=== PATIENT | male | born 1950 | race Two or more races ===

== ENCOUNTER 2024-09-30 12:00 | Inpatient (IN) | payer MEDICARE, MEDICAID, SELFPAY ==
[2024-09-30] VITALS (10 sets, daily range): BP systolic 97–140; BP diastolic 60–82; PULSE 96–114; RESP 17–25; TEMP 36.2–39.9; O2SAT 95–100; BMI 24.6; BMI 25.2
--- NOTE | 2024-09-30 12:59 | EKG_ITS ---
[facility] Test Date: 2024-09-30 Pat Name: JENELLE DUEÑAS Department: Room: - Gender: Male [employer] Operator: : 1950 Requested By: Nubia Sandy Order Number: [id number] Reading MD: Nubia Sadny Measurements Intervals [place] Rate: 105 P: 49 CO: 144 QRS: 24 QRSD: 114 T: 63 QT: 366 QTc: 485 Interpretive Statements SINUS TACHYCARDIA MODERATE INTRAVENTRICULAR CONDUCTION DELAY [110+ ms QRS DURATION] NONSPECIFIC T-WAVE ABNORMALITY ABNORMAL RHYTHM ECG Compared to ECG 03/29/2024 13:16:41 T-wave abnormality now present /store/S0/[id number]/ecg/[id number].pdf
--- NOTE | 2024-09-30 13:00 | XR_ITS ---
Examination: AP chest single view Technique one AP portable upright chest single view Exam date and time: September 30, 2024 1418 hours INDICATIONS: Weakness fever today. Final Subtle interstitial opacity in the lung zones Scarring in the right midlung Normal heart size Moderate osteopenia IMPRESSION: Suspicious for early diffuse bilateral pneumonia
--- NOTE | 2024-09-30 13:01 | EDNOTE_ITS ---
ED General RME/HPI General Chief complaint: Weakness Stated complaint: GENERAL WEAKNESS Time Seen by Provider: 09/30/24 12:53 Arrival date/time: 09/30/24 12:00 RME / HPI RME / HPI narrative: 73-year-old male patient with significant history of hypertension diabetes mellitus, CVA, with right-sided weakness, came in for evaluation regarding worsening generalized body weakness and not feeling well.. According to him for the last 1 week he has been having difficulty ambulating getting worse every day associated with not feeling well. Also complained of mild cough. Patient denies any abdominal pain. Denies any fever. Denies any other complaints. According to EMS patient is able to amb[place] Patient denies any fall recently. Related Data Previous Rx's ?Medication ?Instructions ?Recorded atorvastatin 80 mg tablet 80 mg PO HS 2 months #60 tabs 03/31/24 flash glucose scanning reader #1 ea 03/31/24 (FreeStyle Shelley 14 Day [place]rell) flash glucose sensor (FreeStyle #1 ea 03/31/24 Shelley 14 Day Sensor kit) insulin degludec 100 unit/mL (3 45 unit (0.45 mL) subcut QDAY #15 03/31/24 mL) subcutaneous pen mL Allergies Allergy/AdvReac Type Severity Reaction Status Date / Time No Known Allergies Allergy Verified 11/14/18 11:34 Review of Systems Review of Systems Narrative Review of Systems: Review of system reviewed and within normal limits except mentioned in HPI ED Exam Narrative Physical exam: VITAL SIGNS: Reviewed. GENERAL APPEARANCE: Alert and interactive, follows commands, no acute distress, HEAD AND FACE: Non-traumatic. ENT: PERRL, pink conjunctivitis, eyelid no trauma, Mucous membrane moist. NECK: Supple, nontender, no nuchal rigidity. CHEST: No tenderness, no crepitus, no paradoxical movement, no retractions. LUNGS: Clear, well ventilated, symmetric, no rales, no wheezing, no ronchi, no stridor, good breath sounds bilaterally. HEART: Regular rate, regular rhythm, no murmur, no gallops. ABDOMEN: Soft, positive bowel sounds, nondistended, no guarding, nontender, no rebound, no masses, left colostomy intact, with good amount of fecal material, suprapubic catheter intact draining cloudy urine RECTAL: Deferred. GENITAL: Deferred. NEUROLOGICAL: Gross motor function intact sensory function intact, Appropriate for age. MUSCULOSKELETAL: low back nontender, full range of motion. EXTREMITIES: Nontender, full range of motion. SKIN: Color pink, dry, no rash, no lacerations, no abrasions, no contusions. LYMPHATICS: Deferred. Course Quality Measures none Orders Category Date Time Status Admit to Inpatient Status Routine Admission 09/30/24 17:49 Active Patient Condition Routine Admission 09/30/24 17:48 Ordered COVID-19 Screening Questionnaire NOW Care 09/30/24 17:22 Active Decision to Admit X1 Care 09/30/24 17:22 Active EKG (ED ONLY) *Do not use* NOW Care 09/30/24 12:59 Completed Ordaz [Urinary Catheter] QS Care 09/30/24 13:00 Active Notify provider NEEDED Care 09/30/24 17:48 Active EKG (ED Only) Stat Exams 09/30/24 12:59 Draft XR chest 1V Stat Exams 09/30/24 13:00 Completed Blood Culture (Lab) Stat Lab 09/30/24 16:25 Received CBC AM DRAW Lab 10/01/24 05:00 Ordered CBC AM DRAW Lab 10/02/24 05:00 Ordered CBC AM DRAW Lab 10/03/24 05:00 Ordered CBC Stat Lab 09/30/24 13:05 Completed Comprehensive Metabolic Panel AM DRAW Lab 10/01/24 05:00 Ordered Comprehensive Metabolic Panel AM DRAW Lab 10/02/24 05:00 Ordered Comprehensive Metabolic Panel AM DRAW Lab 10/03/24 05:00 Ordered Comprehensive Metabolic Panel Stat Lab 09/30/24 13:05 Completed Lactate (Lactic Acid) Stat Lab 09/30/24 16:20 Completed Lipase Stat Lab 09/30/24 13:05 Completed Lipid Panel AM DRAW Lab 10/01/24 05:00 Ordered Magnesium AM DRAW Lab 10/01/24 05:00 Ordered Magnesium AM DRAW Lab 10/02/24 05:00 Ordered Magnesium AM DRAW Lab 10/03/24 05:00 Ordered Partial Thromboplastin Time Stat Lab 09/30/24 13:05 Completed Phosphorous AM DRAW Lab 10/01/24 05:00 Ordered Phosphorous AM DRAW Lab 10/02/24 05:00 Ordered Phosphorous AM DRAW Lab 10/03/24 05:00 Ordered Procalcitonin Stat Lab 09/30/24 13:05 Completed Prothrombin Time with INR Stat Lab 09/30/24 13:05 Completed Thyroid Stimulating Hormone AM DRAW Lab 10/01/24 05:00 Ordered UA, C/S IF [Urinalysis, C/S if Indicated] Stat Lab 09/30/24 15:17 Completed Urine Culture Stat Lab 09/30/24 15:17 Received Acetaminophen Tab [Tylenol ES Tab] Med 09/30/24 15:35 Discontinued 1,000 mg PO X1 ONE Acetaminophen Tab [Tylenol Tab] Med 09/30/24 17:48 Active 650 mg PO Q6H PRN Azithromycin Inj [Zithromax Inj] 500 mg Med 09/30/24 15:30 Discontinued Sodium Chloride 0.9% 250 ml [Ns] 250 ml IV X1 Cefepime Inj [Maxipime Inj] 2 gm Med 09/30/24 17:53 Discontinued Sodium Chloride 0.9% (P) [Ns 0.9% (P)] 50 ml IV Q12HR Enoxaparin [Lovenox] Med 10/01/24 09:00 Active 40 mg SC QDAY Ibuprofen Tab [Motrin Tab] Med 09/30/24 16:15 Discontinued 800 mg PO X1 ONE Ondansetron Inj [Zofran Inj] Med 09/30/24 17:48 Active 4 mg IV Q6H PRN Sodium Chloride 0.9% 1000 ml [Ns] 1,000 ml Med 09/30/24 17:52 Active IV 75 mls/hr Sodium Chloride 0.9% 1000 ml [Ns] 1,000 ml Med 09/30/24 15:29 Discontinued IV 999 mls/hr cefTRIAXone/D5w 1gm IV premix [Rocephin/D5w 1gm IV Med 09/30/24 15:30 Discontinued premix] 50 ml IV X1 Code Status Routine Oth 09/30/24 17:48 Ordered Vital Signs Vital signs: Vital Signs Temperature 98.0 F 09/30/24 12:01 Pulse Rate 96 09/30/24 12:01 Respiratory Rate 17 09/30/24 12:01 Blood Pressure 97/60 09/30/24 12:01 Pulse Oximetry (%) 100 09/30/24 12:01 Oxygen Delivery Method Room Air 09/30/24 12:01 [facility] Patient data External records reviewed:: None Clinical information provided by:: none Social determinants that could affect healthcare access:: none Patient has the following chronic illnesses:: Note it is felt this hypertension history of rectal cancer How is presenting disease/condition affected by chronic disease/condition?: e xacerbated by Evaluation data The following diagnostics were reviewed and interpreted by me:: lab results, radiology exam(s) and EKG tracing(s) Lab and/or radiology exams considered but not ordered:: None Interpretation Summary: Laboratory workup is significant for slight elevation of Pro-Cesar, urinalysis significant for UTI, creatinine 1.8 BUN of 54. Chest x-ray showed diffuse bibasal pneumonia. EKG as interpreted by me showed EKG showed as interpreted by me as normal sinus rhythm, ventricular rate 105 bpm, no ST segment elevation depression noted. None Medications Medications considered but not ordered:: None Medication administrations:: Medication Administration History Acetaminophen (Acetaminophen 325 Mg Tablet) 650 mg PO Q6H PRN PRN Reason: Pain and Fever >101.5 Stop: 10/30/24 17:47 Dextrose (Dextrose 50%-Water Inj 50 Ml Syringe) 25 ml IV Q15MIN PRN PRN Reason: BG 50-70 responsive npo pt Stop: 10/30/24 17:57 Dextrose (Dextrose 50%-Water Inj 50 Ml Syringe) 50 ml IV Q15MIN PRN PRN Reason: BG <50 OR BG <70 & pt unresponsive Stop: 10/30/24 17:57 Enoxaparin Sodium (Enoxaparin Sod Inj 40 Mg/0.4 Ml Syringe) 40 mg SC QDAY ESTER Stop: 10/15/24 08:59 Glucagon (Glucagon Inj 1 Mg Vial) 1 mg IM Q15MIN PRN PRN Reason: BG <70, and no IV access Sodium Chloride (Ns) 1,000 mls @ 75 mls/hr IV .[id number] ONE Stop: 10/01/24 07:11 Cefepime HCl 2 gm/ Sodium (Chloride) 50 mls @ 100 mls/hr IV Q12HR ESTER Stop: 10/08/24 08:59 Insulin Glargine (Insulin Glargine (Lantus) 5 Unit/0.05 Ml (Per 5 Units)) 30 unit SC QDAY ESTER Stop: 10/30/24 17:59 Insulin Human Lispro (Insulin Lispro (Admelog) 1 Unit/0.01 Ml Unit) 0 unit SC AC ESTER; Protocol Stop: 10/31/24 07:29 Insulin Human Lispro (Insulin Lispro (Admelog) 1 Unit/0.01 Ml Unit) 6 unit SC TIDWM ESTER Stop: 10/31/24 07:59 Ondansetron HCl (Ondansetron Inj 2 Mg/Ml Inj 2 Ml) 4 mg IV Q6H PRN; Protocol PRN Reason: NAUSEA OR VOMITING Stop: 10/30/24 17:47 Discontinued Medications Acetaminophen (Acetaminophen 500 Mg Tablet) 1,000 mg PO X1 ONE Stop: 09/30/24 15:36 Last Admin: 09/30/24 15:05 Dose: 1,000 mg Documented By: MICHAEL Sodium Chloride (Ns) 1,000 mls @ 999 mls/hr IV .Q1H1M ONE Stop: 09/30/24 16:29 Last Admin: 09/30/24 15:48 Dose: 999 mls/hr Documented By: MICHAEL Ceftriaxone Sodium/Dextrose (Rocephin/D5w 1gm Iv Premix) 50 mls @ 100 mls/hr IV X1 ONE Stop: 09/30/24 15:59 Last Admin: 09/30/24 16:15 Dose: 100 mls/hr Documented By: MICHAEL Azithromycin 500 mg/ Sodium (Chloride) 250 mls @ 250 mls/hr IV X1 ONE Stop: 09/30/24 16:29 Last Admin: 09/30/24 16:15 Dose: 250 mls/hr Documented By: MICHAEL Cefepime HCl 2 gm/ Sodium (Chloride) 50 mls @ 100 mls/hr IV Q12HR COUNTS INCLUDE 234 BEDS AT THE [facility] Stop: 10/07/24 17:52 Ibuprofen (Ibuprofen Tab 400 Mg Tablet) 800 mg PO X1 ONE Stop: 09/30/24 16:16 Ceftriaxone and Zithromax IV. Patient was given Motrin and Tylenol. Consultations Consultation(s) initiated? (list below): No Diagnosis Differential Diagnosis ED Complaint MDM: Sepsis, pneumonia, UTI Most likely diagnosis given after review of the tests above:: Sepsis secondary to UTI, and pneumonia Admission Indicated Admission indicated?: indicated Explain why admission is indicated or not indicated:: Stable Admission Request Was there a request for admission?: Yes Admission Attestation Admission request attestation: Discussed case with [Dr. Locke] from Hospitalist service regarding admission. Discussed patients ED course, exam findings, labs, and radiology results. The Hospitalist [agrees] to accept the patient for admission. Disposition Plan Disposition Plan: Admit Medical Decision Making MDM Narrative MDM Narrative: 73-year-old male patient with significant history of hypertension diabetes mellitus, CVA, with right-sided weakness, came in for evaluation regarding worsening generalized body weakness and not feeling well.. According to him for the last 1 week he has been having difficulty ambulating getting worse every day associated with not feeling well. Also complained of mild cough. Patient denies any abdominal pain. Denies any fever. Denies any other complaints. According to EMS patient is able to ambulate with assistance going to the [place]. Patient denies any fall recently. While in the emergency room patient was noted to have a fever 103.8, tachycardic, sepsis alert was initiated. Laboratory workup significant for slightly elevated creatinine 1.8, BUN of 24, and significant urinary tract infection. Chest x-ray showed diffuse bilateral pneumonia. Patient was given IV fluids for hydration, Tylenol, IV ceftriaxone and Zithromax IV. Differential Diagnosis Differential Diagnosis: Sepsis, pneumonia, UTI Lab Data 09/30/24 13:05 09/30/24 13:05 Labs: Lab Results 09/30/24 09/30/24 09/30/24 Range/Units 13:05 15:17 16:20 WBC 9.1 (3.8-10.6) Thou/mm3 RBC 3.51 L (4.50-5.90) Miln/mm3 Hgb 10.0 L (13.5-16.0) g/dL Hct 28.6 L (41.0-53.0) % MCV 82 (80-100) fL MCH 28.5 (25.0-35.0) pg MCHC 35.0 (31.0-37.0) g/dl RDW Std Deviation 41.1 (35.1-43.9) fL Plt Count 190 (140-440) Thou/mm3 Neut % (Auto) 81 H (37-80) % Lymph % (Auto) 12 (10-50) % [place] % (Auto) 6 (0-12) % Eos % (Auto) 1 (0-10) % Baso % (Auto) 0 (0-2.5) % Neut # (Auto) 7.4 (1.8-7.7) Thou/mm3 Lymph # (Auto) 1.1 (1.0-4.8) Thou/mm3 [place] # (Auto) 0.6 (0.0-0.8) Thou/mm3 Eos # (Auto) 0.1 (0.0-0.5) Thou/mm3 Baso # (Auto) 0.0 (0.0-0.2) Thou/mm3 Immature Gran # (Auto) 0.03 H (0.00-0.00) Thou/mm3 Absolute Nucleated RBC 0.00 (0.00-0.00) Thou/mm3 Immature Gran % 0 (0-0) % Nucleated RBC % 0 (0) /100 WBC PT 11.1 (9.0-12.2) Seconds INR 1.0 (0.9-1.3) APTT 30.5 (22.0-36.0) Seconds Sodium 132 L (136-145) mMol/L Potassium 4.3 (3.4-5.1) mMol/L Chloride 100 (98-107) mMol/L Carbon Dioxide 26.7 (20.0-31.0) mMol/L Anion Gap 5 L (7-16) BUN 24 H (9-23) mg/dL Creatinine 1.8 H (0.6-1.3) mg/dL Estim Creat Clear Calc 35.4 L (>60) mL/min eGFR 39 L (60 - ) See Note BUN/Creatinine Ratio 13 (12-20) Ratio Glucose 338 H (74-106) mg/dL Calculated Osmolality 281 (275-295) Lactic Acid 1.9 (0.4-2.0) mMol/L Calcium 8.6 (8.3-10.6) mg/dL Corrected Calcium 8.8 (8.5-10.1) mg/dL Total Bilirubin 0.5 (0.3-1.2) mg/dL AST 13 (0-34) U/L ALT 12 (10-49) U/L Alkaline Phosphatase 96 (46-116) U/L Total Protein 6.7 (5.7-8.2) gm/dL Albumin 3.8 (3.4-4.8) gm/dL Globulin 2.9 (2.3-3.5) gm/dL Albumin/Globulin Ratio 1.3 (1.2-2.2) Lipase 22 (12-53) U/L Procalcitonin 0.60 H (0.0-0.49) ng/ml Ur Collection Type Clean Catch Urine Color Yellow (Lt Yel-Yel) Urine Clarity Cloudy A (Clear/Hazy) Urine pH 5.5 (5.0-7.0) Ur Specific [place] 1.014 (1.001-1.035) Urine Protein 2+ A (Neg - Trace) Urine Glucose (UA) 4+ A (Negative) Urine Ketones Negative (Negative) Urine Blood 2+ A (Negative) Urine Nitrite Positive (Negative) Urine Bilirubin Negative (Negative) Urine Urobilinogen (Auto) Negative (0.0-1.0) mg/dL Ur Leukocyte Esterase Positive (Negative) Urine RBC 23 H (0-3) /hpf Urine WBC 998 H (0-5) /hpf Ur Squamous Epith Cells 1 (0-5) /hpf Urine Bacteria 1+ A (None) Ur Culture Indicated? Yes Discharge Plan Plan Patient Disposition: Admit Acute Care w/in Hospital Disposition Comment: stable Problem List Clinical Impression: Sepsis, UTI (urinary tract infection), PNA (pneumonia) Patient/Caregiver Discharge Instructions Discharge Activity: activity as tolerated
[2024-09-30 13:40] LABS: Basophils % (Auto) 0 % (0-2.5); Eosinophils # (Auto) 0.1 Thou/mm3 (0.0-0.5); Eosinophils % (Auto) 1 % (0-10); Hematocrit 28.6 % (41.0-53.0); Immature Granulocytes % (Auto) 0 % (0-0); Immature Granulocytes Auto 0.03 Thou/mm3 (0.00-0.00); Lymphocytes # (Auto) 1.1 Thou/mm3 (1.0-4.8); Lymphocytes % (Auto) 12 % (10-50); Mean Corpuscular Hemoglobin 28.5 pg (25.0-35.0); Mean Corpuscular Volume 82 fL (80-100); Monocytes # (Auto) 0.6 Thou/mm3 (0.0-0.8); Monocytes % (Auto) 6 % (0-12); Neutrophils # (Auto) 7.4 Thou/mm3 (1.8-7.7); Neutrophils % (Auto) 81 % (37-80); Nucleated Red Blood Cell % 0 /100 WBC (0); Platelet Count 190 Thou/mm3 (140-440); RDW Standard Deviation 41.1 fL (35.1-43.9); Red Blood Count 3.51 Miln/mm3 (4.50-5.90); White Blood Count 9.1 Thou/mm3 (3.8-10.6)
[2024-09-30 13:54] LABS: Partial Thromboplastin Time 30.5 Seconds (22.0-36.0); Prothrombin Time 11.1 Seconds (9.0-12.2)
[2024-09-30 13:59] LABS: Alanine Aminotransferase 12 U/L (10-49); Albumin, Serum 3.8 gm/dL (3.4-4.8); Albumin/Globulin Ratio 1.3 (1.2-2.2); Alkaline Phosphatase 96 U/L (46-116); Anion Gap 5 (7-16); Aspartate Amino Transferase 13 U/L (0-34); BUN/Creatinine Ratio 13 Ratio (12-20); Bilirubin,Total 0.5 mg/dL (0.3-1.2); Blood Urea Nitrogen 24 mg/dL (9-23); Calcium 8.6 mg/dL (8.3-10.6); Calcium (Corrected) 8.8 mg/dL (8.5-10.1); Carbon Dioxide 26.7 mMol/L (20.0-31.0); Chloride 100 mMol/L (98-107); Creatinine (Component) 1.8 mg/dL (0.6-1.3); Estimated Creatinine Clearance 35.4 mL/min (>60); Globulin 2.9 gm/dL (2.3-3.5); Glucose 338 mg/dL (74-106); Lipase 22 U/L (12-53); Osmolality,Calculated 281 (275-295); Potassium 4.3 mMol/L (3.4-5.1); Sodium 132 mMol/L (136-145); Total Protein 6.7 gm/dL (5.7-8.2); eGFR 39 See Note
[2024-09-30] MEDS: ACETAMINOPHEN 500 MG TABLET 1000 MG PO (15:05)
[2024-09-30 15:22] LABS: Collection Type, Urine Clean Catch
[2024-09-30 15:45] LABS: Bacteria,Urine 1+; Bilirubin,Urine Negative (Negative); Blood,Urine 2+ (Negative); Color,Urine Yellow (Lt Yel-Yel); Glucose, Urine 4+ (Negative); Ketones,Urine Negative (Negative); Leukocyte Esterase,Urine Positive (Negative); Nitrite,Urine Positive (Negative); PH,Urine 5.5 (5.0-7.0); Protein,Urine 2+ (Neg - Trace); RBC,Urine 23 /hpf (0-3); Specific Gravity,Urine 1.014 (1.001-1.035); Squamous Epithelial Cell,Urine 1 /hpf (0-5); Urobilinogen,Urine Negative mg/dL (0.0-1.0); WBC,Urine 998 /hpf (0-5)
[2024-09-30] MEDS: SODIUM CHLORIDE 0.9% 1000 ML 1,000 ML 999 ML IV (15:48)
[2024-09-30 15:53] LABS: Clarity,Urine Cloudy (Clear/Hazy); Culture Indicated,Urine Yes
[2024-09-30] MEDS: cefTRIAXone/D5w 1gm IV premix 50 ML IV (16:15)
[2024-09-30] MEDS: AZITHROMYCIN INJ 500 MG in SODIUM CHLORIDE 0.9% 250 ML 250 ML 250 MG IV (16:15)
[2024-09-30 16:46] LABS: Lactate (Lactic Acid) 1.9 mMol/L (0.4-2.0)
--- NOTE | 2024-09-30 18:15 | ESHP_ITS ---
Documentation for date of: 09/30/24 [facility] History of Present Illness History of present illness: The patient is a 73-year-old male with a past medical history of hypertension, diabetes, CVA, colon and prostate cancer status post colostomy and radiation with suprapubic catheter who presented to the ED on 09/30/2024 with generalized weakness, mild confusion and fever that started about 24 hours prior to presentation. Per daughter and at bedside, patient got up to walk with his walker yesterday but was noted to be shaky and unsteady and reported more weakness than his usual for him. He was also noted the patient was running hot, with subjective fevers however they never actually checked his temperature at home, he reported chills as well. Patient cannot report dysuria due to catheter, but denies abdominal pain, nausea, vomiting, diarrhea, chest pain, cough. Patient does have a chronic suprapubic catheter after radiation for prostate cancer about 6 years ago, the catheter is changed periodically and was recently changed 4 days ago. He also has a colostomy bag, with good output. ED course: On presentation to the ED, the patient was noted to be afebrile, tachycardic and tachypneic but normotensive. Labs showed WBC 9.1 Hgb 10 PLT 190 NA 130 2K4.3 CL 100 bicarb 26.7 BUN 24 CR 1.8 EGFR 39 glucose 338. UA showed cloudy urine with 2+ protein and 4+ glucose, 23 RBCs and 998 WBC, 1+ bacteria. Chest x-ray was done which is suspicious for early diffuse bilateral pneumonia. EKG showed sinus tachycardia but no T wave or ST abnormalities, no arrhythmias. The patient was given 1 dose of IV ceftriaxone and azithromycin in the ED and 1 L of NS per sepsis protocol. He is being admitted for management of acute encephalopathy, sepsis secondary to urinary tract infection and pneumonia PMHx-hypertension, diabetes, colon and prostate cancer, CVA PSHx-colectomy Home meds-insulin, atorvastatin, lisinopril Review of Systems Review of Systems Narrative Review of Systems: GENERAL: Admits fevers and chills HEENT: Denies headache or visual/hearing changes. Denies nasal discharge. NEURO: Admits unusual weakness CARDIO: Denies chest pain or palpitations. PULM: Denies SOB, coughing, or wheezing. GI: Denies abdominal pain, N/V/C/D/reflux/gas, bright red blood per rectum or melena. Reports having BMs. URO: Denies burning/itching/pain/urinary changes. MSK/EXT/SKIN: Denies joint/skeletal/muscle pain, issues/changes in upper or lower extremities, itchiness, or superficial pain. Past Medical History Past Medical History CARDIAC: Positive Hypercholesterolemia and Hypertension GASTROINTESTINAL: Positive Colorectal Cancer GENITOURINARY: Positive Benign Prostatic Hyperplasia MUSCULOSKELETAL: Positive Arthritis OTHER HISTORY: Positive Cancer (colon) and Colorectal Cancer Family History FAMILY HISTORY: Positive Family Cancer ([place]) Surgical History SURGICAL: Positive Bowel Surgery Exam Vital Signs Temp Pulse Resp BP Pulse Ox O2 Del Method 103.8 F H 108 H 24 H 140/82 H 97 Room Air 09/30/24 16:14 09/30/24 14:02 09/30/24 14:02 09/30/24 14:02 09/30/24 14:02 09/30/24 14:02 Narrative Exam GENERAL: AAOX3, mildly confused NEURO: CRANE HELPER grossly intact, residual dysarthria from CVA, right-sided weakness HEENT: Dry mucosa. Eyes open, symmetrical, & clear CARDIO: No chest pain on palpation. Heart RRR, no obvious murmurs PULM: No noted coughing/dyspnea. Lungs CTA B/L GI: Abdomen soft, nondistended, colostomy bag seen with good output. URO/ACTIVITIES COUNSELOR:: Suprapubic catheter seen, no signs of infection SKIN/MSK/EXT: No wounds/rashes/edema/amputations, no pain on palpation. Pedal pulses present B/L Results: Labs 10/03/24 04:22 10/03/24 04:22 Labs: Short CBC 09/30/24 Range/Units 13:05 WBC 9.1 (3.8-10.6) Thou/mm3 Hgb 10.0 L (13.5-16.0) g/dL Hct 28.6 L (41.0-53.0) % Plt Count 190 (140-440) Thou/mm3 BMP 09/30/24 13:05 Sodium 132 L Potassium 4.3 Chloride 100 Carbon Dioxide 26.7 BUN 24 H Creatinine 1.8 H Glucose 338 H Calcium 8.6 Liver Function 09/30/24 Range/Units 13:05 Total Bilirubin 0.5 (0.3-1.2) mg/dL AST 13 (0-34) U/L ALT 12 (10-49) U/L Alkaline Phosphatase 96 (46-116) U/L Albumin 3.8 (3.4-4.8) gm/dL Urine 09/30/24 Range/Units 15:17 Urine Color Yellow (Lt Yel-Yel) Urine Clarity Cloudy A (Clear/Hazy) Urine pH 5.5 (5.0-7.0) Ur Specific [place] 1.014 (1.001-1.035) Urine Protein 2+ A (Neg - Trace) Urine Glucose (UA) 4+ A (Negative) Quality Measures Quality Measures VTE prophylaxis Advance care planning discussed with:: patient, spouse and child Medications Home Medications and Allergies Home Medications ?Medication ?Instructions ?Recorded ?Confirmed ?Type aspirin 81 mg chewable tablet 81 mg PO QDAY 10/01/24 10/01/24 History atorvastatin 80 mg tablet 80 mg PO ONCE PM 10/01/24 10/01/24 History ferrous sulfate 325 mg (65 mg 325 mg PO DAILY 10/01/24 10/01/24 History iron) tablet (FeroSul) insulin aspart U-100 100 unit/mL 10 unit subcut TIDWMEAL 10/01/24 10/01/24 History (3 mL) subcutaneous pen (Novolog FlexPen U-100 Insulin aspart) insulin glargine 100 unit/mL (3 50 unit subcut HS 10/01/24 10/01/24 History mL) subcutaneous pen (Lantus Solostar U-100 Insulin) lisinopril 10 mg tablet 10 mg PO QDAY 10/01/24 10/01/24 History Allergies Allergy/AdvReac Type Severity Reaction Status Date / Time No Known Allergies Allergy Verified 10/01/24 00:17 Visit Medications Acetaminophen (Acetaminophen 325 Mg Tablet) 650 mg PO Q6H PRN PRN Reason: Pain and Fever >101.5 Stop: 10/30/24 17:47 Dextrose (Dextrose 50%-Water Inj 50 Ml Syringe) 25 ml IV Q15MIN PRN PRN Reason: BG 50-70 responsive npo pt Stop: 10/30/24 17:57 Dextrose (Dextrose 50%-Water Inj 50 Ml Syringe) 50 ml IV Q15MIN PRN PRN Reason: BG <50 OR BG <70 & pt unresponsive Stop: 10/30/24 17:57 Enoxaparin Sodium (Enoxaparin Sod Inj 40 Mg/0.4 Ml Syringe) 40 mg SC QDAY [facility] Stop: 10/15/24 08:59 Glucagon (Glucagon Inj 1 Mg Vial) 1 mg IM Q15MIN PRN PRN Reason: BG <70, and no IV access Sodium Chloride (Ns) 1,000 mls @ 75 mls/hr IV .[id number] ONE Stop: 10/01/24 07:11 Cefepime HCl 2 gm/ Sodium (Chloride) 50 mls @ 100 mls/hr IV Q12HR [facility]ER Stop: 10/08/24 08:59 Insulin Glargine (Insulin Glargine (Lantus) 5 Unit/0.05 Ml (Per 5 Units)) 30 unit SC QDAY [facility] Stop: 10/30/24 17:59 Insulin Human Lispro (Insulin Lispro (Admelog) 1 Unit/0.01 Ml Unit) 0 unit SC AC [facility]; Protocol Stop: 10/31/24 07:29 Insulin Human Lispro (Insulin Lispro (Admelog) 1 Unit/0.01 Ml Unit) 6 unit SC TIDWM [facility] Stop: 10/31/24 07:59 Ondansetron HCl (Ondansetron Inj 2 Mg/Ml Inj 2 Ml) 4 mg IV Q6H PRN; Protocol PRN Reason: NAUSEA OR VOMITING Stop: 10/30/24 17:47 Discontinued Medications Acetaminophen (Acetaminophen 500 Mg Tablet) 1,000 mg PO X1 ONE Stop: 09/30/24 15:36 Last Admin: 09/30/24 15:05 Dose: 1,000 mg Sodium Chloride (Ns) 1,000 mls @ 999 mls/hr IV .Q1H1M ONE Stop: 09/30/24 16:29 Last Admin: 09/30/24 15:48 Dose: 999 mls/hr Ceftriaxone Sodium/Dextrose (Rocephin/D5w 1gm Iv Premix) 50 mls @ 100 mls/hr IV X1 ONE Stop: 09/30/24 15:59 Last Admin: 09/30/24 16:15 Dose: 100 mls/hr Azithromycin 500 mg/ Sodium (Chloride) 250 mls @ 250 mls/hr IV X1 ONE Stop: 09/30/24 16:29 Last Admin: 09/30/24 16:15 Dose: 250 mls/hr Cefepime HCl 2 gm/ Sodium (Chloride) 50 mls @ 100 mls/hr IV Q12HR [facility] Stop: 10/07/24 17:52 Ibuprofen (Ibuprofen Tab 400 Mg Tablet) 800 mg PO X1 ONE Stop: 09/30/24 16:16 Assessment & Plan Plan Summary: The patient is a 73-year-old male with a past medical history of hypertension, diabetes, colon and prostate cancer status post colostomy and radiation with suprapubic catheter who presented to the ED on 09/30/2024 with generalized weakness, confusion and fever that started about 24 hours prior to presentation. Patient is being admitted for management of acute encephalopathy, sepsis secondary to UTI and possible pneumonia. #Acute encephalopathy #Sepsis secondary to UTI #?Community-acquired pneumonia The patient presented with generalized weakness, mild confusion and fever. He is unable to endorse dysuria as the patient has a chronic suprapubic catheter. However he denies abdominal pain, nausea, vomiting, diarrhea, chest pain or cough. Chest x-ray was done which showed suspicion for early diffuse bilateral pneumonia. UA was positive for UTI with 998 WBCs and 1+ bacteria, positive esterase. The patient was given a dose of ceftriaxone and azithromycin in the ED as well as a 1 L bolus of normal saline. Plan: -Admit to [facility] -IV cefepime 1 g every 8hr -Maintenance fluids IV NS at 75 cc/h -Blood and urine cultures -Continue to monitor CBC #Acute kidney injury likely due to decreased oral intake On admission, labs showed BUN of 24 and creatinine of 1.8. Baseline creatinine looks to be about 1.2, patient has no history of chronic kidney disease. Family at bedside does report the patient has had decreased oral intake in the last couple days. The patient has received 1 L bolus NS in the ED. Plan: -Maintenance fluid IV NS at 75 cc/h -Avoid nephrotoxic medications -Monitor CMP #Hyponatremia Admitting labs showed sodium of 132. Glucose was also 338, possibly pseudohyponatremia from hyperglycemia. Corrected sodium-136 Plan: -Optimize blood glucose control -Monitor CMP #History of diabetes mellitus Patient has a history of type II DM, is on Lantus 50 units at night and short acting 10 units with meals. Admitting blood glucose-338 Plan: -Insulin glargine at 30 units daily -Short acting insulin lispro 6 units with meals -ISS -Blood glucose check ACHS -Hypoglycemic protocols in place #History of hypertension The patient is on lisinopril 2.5 mg daily. Blood pressure on admission has been soft. Plan: -Hold antihypertensive for now -Continue to monitor blood pressure Health maintenance: Dispo: MedSurg Diet: Carb consistent low DVT: Lovenox Med Rec: Pending, f/u PT: Code:Full Case was discussed with senior resident Dr Locke PGY-3 and attending physician, Dr Ebony Peterson MD PGY-1 LI discussed with and supervised the corporate development intern physician who took care of this patient. I personally saw and examined the patient and discussed the assessment and plan with the entire medicine team, including my attending Dr. Roberto Carlos Beck MD. I agree with the assessment and plan as documented above. Surinder Locke M.D. Internal Medicine PGY-3 Attending Provider Attestation/Addendum Face to face evaluation was performed by me. I have personally seen and examined the patient. I discussed the assessment and plan with the entire medicine team. I reviewed available medical records, imaging studies, laboratory results. I agree with the above subjective data, objective findings, assessment and plan except as corrected by me or noted below Acute encephalopathy suspect infectious and metabolic due to UTI as well as hyperglycemia/ JACQUELINE Type 2 diabetes poorly controlled with hyperglycemia on admission Acute kidney injury present on admission likely dehydration prerenal etiology possible ATN Urine tract infection, present on admission with chronic suprapubic catheter in place, gram-negative bacilli most likely Sepsis present on admission due to UTI as above without septic shock -Empiric IV antibiotics follow culture data monitor clinical course closely Insulins for diabetes, needs to have better control continue to adjust insulins Target glucose level around 100?160s
[2024-09-30] MEDS: SODIUM CHLORIDE 0.9% 1000 ML 1,000 ML 75 ML IV (18:45)
[2024-09-30] MEDS: IBUPROFEN TAB 400 MG TABLET 800 MG PO (18:55)
[2024-09-30] MEDS: INSULIN GLARGINE (Lantus) 5 UNIT/0.05 ML (PER 5 UNITS) 30 UNIT SC (19:06)
[2024-09-30] MEDS: ACETAMINOPHEN 325 MG TABLET 650 MG PO (22:23)
[2024-10-01] VITALS (7 sets, daily range): BP systolic 105–176; BP diastolic 61–95; PULSE 79–119; RESP 16–20; TEMP 36.4–37.5; O2SAT 92–95; BMI 13.0; BMI 25.2
--- NOTE | 2024-10-01 01:08 | PC.NURSE ---
suprapubic catheter connected to leg bag - Changed bag to bedside bag.
[2024-10-01 03:35] LABS: Chloride,Urine Random 34.4 mMol/L (55.0-125.0); Potassium,Urine Random 30 mMol/L (12-62); Sodium,Urine Random 52.5 mMol/L (20.0-110.0)
[2024-10-01 05:44] LABS: Basophils % (Auto) 0 % (0-2.5); Eosinophils # (Auto) 0.1 Thou/mm3 (0.0-0.5); Eosinophils % (Auto) 2 % (0-10); Glucose Estimated Average 306 mg/dL (80-131); Hematocrit 25.9 % (41.0-53.0); Hemoglobin A1C 12.3 % Hgb (4.8-6.0); Immature Granulocytes % (Auto) 1 % (0-0); Immature Granulocytes Auto 0.06 Thou/mm3 (0.00-0.00); Lymphocytes # (Auto) 1.1 Thou/mm3 (1.0-4.8); Lymphocytes % (Auto) 12 % (10-50); Mean Corpuscular HGB Conc 33.6 g/dl (31.0-37.0); Mean Corpuscular Hemoglobin 28.2 pg (25.0-35.0); Mean Corpuscular Volume 84 fL (80-100); Monocytes # (Auto) 0.6 Thou/mm3 (0.0-0.8); Monocytes % (Auto) 7 % (0-12); Neutrophils # (Auto) 6.7 Thou/mm3 (1.8-7.7); Neutrophils % (Auto) 78 % (37-80); Nucleated Red Blood Cell % 0 /100 WBC (0); Platelet Count 150 Thou/mm3 (140-440); RDW Standard Deviation 42.9 fL (35.1-43.9); Red Blood Count 3.09 Miln/mm3 (4.50-5.90); White Blood Count 8.6 Thou/mm3 (3.8-10.6)
[2024-10-01 05:58] LABS: Hemoglobin 8.7 g/dL (13.5-16.0)
[2024-10-01 06:06] LABS: Alanine Aminotransferase 19 U/L (10-49); Albumin, Serum 3.4 gm/dL (3.4-4.8); Albumin/Globulin Ratio 1.4 (1.2-2.2); Alkaline Phosphatase 99 U/L (46-116); Anion Gap 6 (7-16); Aspartate Amino Transferase 16 U/L (0-34); BUN/Creatinine Ratio 13 Ratio (12-20); Bilirubin,Total 0.4 mg/dL (0.3-1.2); Blood Urea Nitrogen 28 mg/dL (9-23); Calcium (Corrected) 8.5 mg/dL (8.5-10.1); Carbon Dioxide 22.7 mMol/L (20.0-31.0); Cardiac Risk Estimate 3.7 RATIO (4.0-6.7); Chloride 105 mMol/L (98-107); Cholesterol 112 mg/dL (132-200); Creatinine (Component) 2.2 mg/dL (0.6-1.3); Estimated Creatinine Clearance 28.9 mL/min (>60); Globulin 2.5 gm/dL (2.3-3.5); Glucose 375 mg/dL (74-106); HDL Cholesterol 30 mg/dL (40-60); LDL Cholesterol,Calculated 47 mg/dL (0-130); Magnesium 1.5 mg/dL (1.6-2.6); Osmolality,Calculated 288 (275-295); Potassium 4.1 mMol/L (3.4-5.1); Sodium 134 mMol/L (136-145); Total Protein 5.9 gm/dL (5.7-8.2); Triglycerides 174 mg/dL (30-150); eGFR 31 See Note
[2024-10-01] MEDS: INSULIN LISPRO (AdmeLOG) 1 UNIT/0.01 ML UNIT SC ×3 (07:51→16:57)
[2024-10-01] MEDS: INSULIN LISPRO (AdmeLOG) 1 UNIT/0.01 ML UNIT 6 UNIT SC (07:51)
[2024-10-01] MEDS: INSULIN GLARGINE (Lantus) 5 UNIT/0.05 ML (PER 5 UNITS) 40 UNIT SC (09:29)
[2024-10-01] MEDS: Magnesium Sulfate 4 GM Ivpb 4 GM/50 ML BAG IV (09:30)
[2024-10-01] MEDS: CEFEPIME INJ 2 GM in SODIUM CHLORIDE 0.9% (P) 50 ML IV (09:30)
[2024-10-01] MEDS: SODIUM CHLORIDE 0.9% 1000 ML 1,000 ML 75 ML IV (10:28)
[2024-10-01] MEDS: INSULIN LISPRO (AdmeLOG) 1 UNIT/0.01 ML UNIT 8 UNIT SC (11:54)
--- NOTE | 2024-10-01 15:28 | PC.SS ---
Initial assessment: This is 73 year old male admitted for sepsis secondary to UTI. Patient appeared alert and oriented. Patient is Barb[place] speaking. Patient's , Rachell at bed side to assist with providing information. Patient lives at home with spouse and family. Patient's spouse, Rachell Willis was identified as the patient's medical surrogate decision maker. Patient requires some assistance with ADL's. Patient has a walker at home to assist with ambulation. Patient's PCP is Dr. Reynold Suarez. [facility] [place]. The discharge plan was discussed, and the patient would like to return home once medically cleared. If recommended for home health, they have no preferred agency. Patient's family to assist with transportation home. No needs identified at this time. Community resources provided to the patient. food services director to remain available to address further concerns. D/c plan: home Next of kin: spouse, Rachell Willis or sonAnton Jr.
--- NOTE | 2024-10-01 15:33 | PC.SS ---
Rounding note: patient is pending urine cultures and adjustment of insulin.
--- NOTE | 2024-10-01 15:43 | ESPR_ITS ---
Documentation for date of: 10/01/24 Subjective Subjective Interval history: Patient seen at bedside. No acute overnight events. Mentation is better today per family at bedside. Labs and vitals reviewed, magnesium-1.5, will replete with 4 g of IV magnesium sulfate. Creatinine still elevated, 2.2 will continue patient on fluids and encourage oral intake. Blood glucose seems to be uncontrolled still, patient has been started on 30 units of subcutaneous Lantus and 6 units of lispro. Will go up on insulin regimen with 40 units of Lantus and 9 units of insulin lispro. Urine culture pending, blood culture positive for gram-negative rods. Will continue on IV cefepime 2 g every 12hrs. Exam Vital Signs Temp Pulse Resp BP Pulse Ox O2 Del Method O2 Flow Rate 97.6 F 79 18 118/64 93 L Room Air 3 10/01/24 11:50 10/01/24 11:50 10/01/24 11:50 10/01/24 11:50 10/01/24 11:50 10/01/24 11:50 10/01/24 11:50 Narrative Exam GENERAL: AAOX3, mildly confused NEURO: ARCHITECTURE INSTRUCTOR grossly intact, residual dysarthria from CVA, right-sided weakness HEENT: Dry mucosa. Eyes open, symmetrical, & clear CARDIO: No chest pain on palpation. Heart RRR, no obvious murmurs PULM: No noted coughing/dyspnea. Lungs CTA B/L GI: Abdomen soft, nondistended, colostomy bag seen with good output. URO/HAND PATCHER:: Suprapubic catheter seen, no signs of infection SKIN/MSK/EXT: No wounds/rashes/edema/amputations, no pain on palpation. Pedal pulses present B/L Objective Labs 10/03/24 04:22 10/03/24 04:22 Labs: Laboratory Results - last 24 hr 09/30/24 09/30/24 09/30/24 13:05 15:17 16:20 WBC RBC Hgb Hct MCV MCH MCHC RDW Std Deviation Plt Count Neut % (Auto) Lymph % (Auto) [place] % (Auto) Eos % (Auto) Baso % (Auto) Neut # (Auto) Lymph # (Auto) [place] # (Auto) Eos # (Auto) Baso # (Auto) Immature Gran # (Auto) Absolute Nucleated RBC Immature Gran % Nucleated RBC % Sodium Potassium Chloride Carbon Dioxide Anion Gap BUN Creatinine Estim Creat Clear Calc eGFR BUN/Creatinine Ratio Glucose Estimated Ave Glu mg/dL Hemoglobin A1c Calculated Osmolality Lactic Acid 1.9 Calcium Corrected Calcium Phosphorus Magnesium Total Bilirubin AST ALT Alkaline Phosphatase Total Protein Albumin Globulin Albumin/Globulin Ratio Triglycerides Cholesterol LDL Cholesterol, Calc HDL Cholesterol Cholesterol/HDL Ratio Procalcitonin 0.60 H TSH Ur Collection Type Clean Catch Urine Color Yellow Urine Clarity Cloudy A Urine pH 5.5 Ur Specific [place] 1.014 Urine Protein 2+ A Urine Glucose (UA) 4+ A Urine Ketones Negative Urine Blood 2+ A Urine Nitrite Positive Urine Bilirubin Negative Urine Urobilinogen (Auto) Negative Ur Leukocyte Esterase Positive Urine RBC 23 H Urine WBC 998 H Ur Squamous Epith Cells 1 Urine Bacteria 1+ A Ur Culture Indicated? Yes Ur Random Sodium Ur Random Potassium Ur Random Chloride 10/01/24 10/01/24 01:40 05:09 WBC 8.6 RBC 3.09 L Hgb 8.7 L Hct 25.9 L MCV 84 MCH 28.2 MCHC 33.6 RDW Std Deviation 42.9 Plt Count 150 D Neut % (Auto) 78 Lymph % (Auto) 12 [place] % (Auto) 7 Eos % (Auto) 2 Baso % (Auto) 0 Neut # (Auto) 6.7 Lymph # (Auto) 1.1 [place] # (Auto) 0.6 Eos # (Auto) 0.1 Baso # (Auto) 0.0 Immature Gran # (Auto) 0.06 H Absolute Nucleated RBC 0.00 Immature Gran % 1 H Nucleated RBC % 0 Sodium 134 L Potassium 4.1 Chloride 105 Carbon Dioxide 22.7 Anion Gap 6 L BUN 28 H Creatinine 2.2 H Estim Creat Clear Calc 28.9 L eGFR 31 L BUN/Creatinine Ratio [address] Glu mg/dL 306 H Hemoglobin A1c 12.3 H Calculated Osmolality 288 Lactic Acid Calcium 8.0 L Corrected Calcium 8.5 Phosphorus 3.0 Magnesium 1.5 L Total Bilirubin 0.4 AST 16 ALT 19 Alkaline Phosphatase 99 Total Protein 5.9 Albumin 3.4 Globulin 2.5 Albumin/Globulin Ratio 1.4 Triglycerides 174 H Cholesterol 112 L LDL Cholesterol, Calc 47 HDL Cholesterol 30 L Cholesterol/HDL Ratio 3.7 L Procalcitonin TSH 0.80 Ur Collection Type Urine Color Urine Clarity Urine pH Ur Specific [place] Urine Protein Urine Glucose (UA) Urine Ketones Urine Blood Urine Nitrite Urine Bilirubin Urine Urobilinogen (Auto) Ur Leukocyte Esterase Urine RBC Urine WBC Ur Squamous Epith Cells Urine Bacteria Ur Culture Indicated? Ur Random Sodium 52.5 Ur Random Potassium 30 Ur Random Chloride 34.4 L Quality Measures Quality Measures VTE prophylaxis Advance care planning discussed with:: patient, spouse and child Assessment & Plan Assessment Current Active Medications: Generic Name Dose Route Start Last Admin Trade Name Freq PRN Reason Stop Dose Admin Acetaminophen 650 mg 09/30/24 17:48 09/30/24 22:23 Acetaminophen 325 Mg Tablet PO 10/30/24 17:47 650 mg Q6H PRN Administration Pain and Fever >101.5 Dextrose 25 ml 09/30/24 17:58 Dextrose 50%-Water Inj 50 Ml Syringe IV 10/30/24 17:57 Q15MIN PRN BG 50-70 responsive npo pt Dextrose 50 ml 09/30/24 17:58 Dextrose 50%-Water Inj 50 Ml Syringe IV 10/30/24 17:57 Q15MIN PRN BG <50 OR BG <70 & pt unresponsive Glucagon 1 mg 09/30/24 17:58 Glucagon Inj 1 Mg Vial IM Q15MIN PRN BG <70, and no IV access Heparin Sodium (Porcine) 5,000 unit 10/01/24 21:00 Heparin Sod Inj 5000 Unit/Ml Vial SC 10/15/24 20:59 Q12HR [facility] Sodium Chloride 1,000 mls @ 75 mls/hr 10/01/24 10:18 10/01/24 10:28 Ns IV 10/01/24 23:37 75 mls/hr .[id number] ONE Administration Cefepime HCl 1 gm/ Sodium 50 mls @ 100 mls/hr 10/01/24 21:00 Chloride IV 10/08/24 08:59 Q12HR [facility] Insulin Glargine 40 unit 10/01/24 09:00 10/01/24 09:29 Insulin Glargine (Lantus) 5 Unit/0.05 Ml (Per 5 Units) SC 10/31/24 08:59 40 unit QDAY [facility] Administration Insulin Human Lispro 0 unit 10/01/24 07:30 10/01/24 11:53 Insulin Lispro (Admelog) 1 Unit/0.01 Ml Unit SC 10/31/24 07:29 4 unit AC [facility] Administration Protocol Insulin Human Lispro 9 unit 10/01/24 17:30 Insulin Lispro (Admelog) 1 Unit/0.01 Ml Unit SC 10/31/24 17:29 TIDWM [facility] Ondansetron HCl 4 mg 09/30/24 17:48 Ondansetron Inj 2 Mg/Ml Inj 2 Ml IV 10/30/24 17:47 Q6H PRN NAUSEA OR VOMITING Protocol Pharmacy Consult 1 each 10/01/24 00:26 Pharmacy To Consult Pneumovacc XX 10/31/24 00:25 PRN PRN CONSULT Plan Summary: The patient is a 73-year-old male with a past medical history of hypertension, diabetes, colon and prostate cancer status post colostomy and radiation with suprapubic catheter who presented to the ED on 09/30/2024 with generalized weakness, confusion and fever that started about 24 hours prior to presentation. Patient is being admitted for management of acute encephalopathy, sepsis secondary to UTI and possible pneumonia. #Acute encephalopathy #Sepsis secondary to UTI #?Community-acquired pneumonia The patient presented with generalized weakness, mild confusion and fever. He is unable to endorse dysuria as the patient has a chronic suprapubic catheter. However he denies abdominal pain, nausea, vomiting, diarrhea, chest pain or cough. Chest x-ray was done which showed suspicion for early diffuse bilateral pneumonia. UA was positive for UTI with 998 WBCs and 1+ bacteria, positive esterase. The patient was given a dose of ceftriaxone and azithromycin in the ED as well as a 1 L bolus of normal saline. 10/01/2024- Urine culture pending, blood culture positive for gram-negative rods. Will continue on IV cefepime 2 g every 12hrs Plan: -CT cefepime 2 g every 12hrs -CT Maintenance fluids IV NS at 75 cc/h -Pending urine culture and sensitivity -Continue to monitor CBC #Acute kidney injury likely due to decreased oral intake On admission, labs showed BUN of 24 and creatinine of 1.8. Baseline creatinine looks to be about 1.2, patient has no history of chronic kidney disease. Family at bedside does report the patient has had decreased oral intake in the last couple days. The patient has received 1 L bolus NS in the ED. Cr today- 2.2 Plan: -CT Maintenance fluid IV NS at 75 cc/h -Avoid nephrotoxic medications -Monitor CMP #Hyponatremia Admitting labs showed sodium of 132. Glucose was also 338, possibly pseudohyponatremia from hyperglycemia. Corrected sodium-136 Plan: -Optimize blood glucose control -Monitor CMP #History of diabetes mellitus Patient has a history of type II DM, is on Lantus 50 units at night and short acting 10 units with meals. Admitting blood glucose-338 Plan: -Insulin glargine increased to 40 units daily -Short acting insulin lispro 9 units with meals -ISS -Blood glucose check ACHS -Hypoglycemic protocols in place #History of hypertension The patient is on lisinopril 2.5 mg daily. Blood pressure on admission has been soft. Plan: -Hold antihypertensive for now -Continue to monitor blood pressure Health maintenance: Dispo: MedSurg Diet: Carb consistent low DVT: SC Heparin Med Rec: Pending, f/u PT: Code:Full Case was discussed with senior resident Dr Locke PGY-3 and attending physician, Dr Ebony Peterson MD PGY-1 LI discussed with and supervised the machine learning intern physician who took care of this patient. I personally saw and examined the patient and discussed the assessment and plan with the entire medicine team, including my attending Dr. Roberto Carlos Beck MD. I agree with the assessment and plan as documented above. Acute metabolic encephalopathy 2/2 UTI - mental status improving, almost at baseline. JACQUELINE- improving, however still elevated at 2.2 for which patient will continue IVF resuscitation. DM2- fasting glucose levels elevated, will increase long acting to 40 units HS and short acting to 9 TIDWM GNR bacteremia- blood cx's speciating GNR, continue cefepime Surinder Locke M.D. Internal Medicine PGY-3 Attending Provider Attestation/Addendum Face to face evaluation was performed by me. I have personally seen and examined the patient. I discussed the assessment and plan with the entire medicine team. I reviewed available medical records, imaging studies, laboratory results. I agree with the above subjective data, objective findings, assessment and plan except as corrected by me or noted below #Acute infectious encephalopathy #Sepsis secondary to UTI, poa, without septic shock # Recurrent UTI, poa, associated with chronic suprapubic catheter - Start empiriic Abxs, obtained cultures, follow up results. monitor labs, vitals and clinical course closely
[2024-10-01] MEDS: INSULIN LISPRO (AdmeLOG) 1 UNIT/0.01 ML UNIT 9 UNIT SC (16:57)
[2024-10-01] MEDS: ACETAMINOPHEN 325 MG TABLET 650 MG PO (18:19)
[2024-10-01] MEDS: CEFEPIME INJ 1 GM in SODIUM CHLORIDE 0.9% (P) 50 ML IV (20:34)
[2024-10-01] MEDS: HEPARIN SOD INJ 5000 UNIT/ML VIAL SC (20:34)
--- NOTE | 2024-10-01 21:03 | PC.NURSE ---
Notified MD of elevated blood pressure 176/95 and blood glucose level 261 mg/dL. Plan to reassess in 20 minutes. No new orders at this time.
[2024-10-02] VITALS (10 sets, daily range): BP systolic 129–168; BP diastolic 71–91; PULSE 90–116; RESP 16–20; TEMP 36.7–38.8; O2SAT 91–98
--- NOTE | 2024-10-02 00:01 | PC.NURSE ---
Pt has a temp of 101.1, cooling measures provided, will continue to monitor.
[2024-10-02] MEDS: ACETAMINOPHEN 325 MG TABLET 650 MG PO (00:25)
[2024-10-02 05:31] LABS: Basophils % (Auto) 0 % (0-2.5); Eosinophils # (Auto) 0.2 Thou/mm3 (0.0-0.5); Eosinophils % (Auto) 2 % (0-10); Hematocrit 25.1 % (41.0-53.0); Immature Granulocytes % (Auto) 1 % (0-0); Immature Granulocytes Auto 0.04 Thou/mm3 (0.00-0.00); Lymphocytes # (Auto) 1.1 Thou/mm3 (1.0-4.8); Lymphocytes % (Auto) 16 % (10-50); Mean Corpuscular HGB Conc 32.7 g/dl (31.0-37.0); Mean Corpuscular Hemoglobin 27.5 pg (25.0-35.0); Mean Corpuscular Volume 84 fL (80-100); Monocytes # (Auto) 0.5 Thou/mm3 (0.0-0.8); Monocytes % (Auto) 7 % (0-12); Neutrophils # (Auto) 4.8 Thou/mm3 (1.8-7.7); Neutrophils % (Auto) 73 % (37-80); Nucleated Red Blood Cell % 0 /100 WBC (0); Platelet Count 155 Thou/mm3 (140-440); RDW Standard Deviation 43.5 fL (35.1-43.9); Red Blood Count 2.98 Miln/mm3 (4.50-5.90); White Blood Count 6.6 Thou/mm3 (3.8-10.6)
[2024-10-02 05:35] LABS: Hemoglobin 8.2 g/dL (13.5-16.0)
[2024-10-02 06:09] LABS: Alanine Aminotransferase 19 U/L (10-49); Albumin, Serum 3.4 gm/dL (3.4-4.8); Albumin/Globulin Ratio 1.3 (1.2-2.2); Alkaline Phosphatase 111 U/L (46-116); Anion Gap 5 (7-16); Aspartate Amino Transferase 16 U/L (0-34); BUN/Creatinine Ratio 13 Ratio (12-20); Bilirubin,Total 0.3 mg/dL (0.3-1.2); Blood Urea Nitrogen 21 mg/dL (9-23); Calcium 8.6 mg/dL (8.3-10.6); Calcium (Corrected) 9.1 mg/dL (8.5-10.1); Carbon Dioxide 22.6 mMol/L (20.0-31.0); Chloride 108 mMol/L (98-107); Creatinine (Component) 1.6 mg/dL (0.6-1.3); Estimated Creatinine Clearance 39.8 mL/min (>60); Globulin 2.7 gm/dL (2.3-3.5); Glucose 264 mg/dL (74-106); Osmolality,Calculated 283 (275-295); Phosphorous 2.6 mg/dL (2.4-5.1); Potassium 4.6 mMol/L (3.4-5.1); Sodium 136 mMol/L (136-145); Total Protein 6.1 gm/dL (5.7-8.2); eGFR 45 See Note
[2024-10-02] MEDS: INSULIN LISPRO (AdmeLOG) 1 UNIT/0.01 ML UNIT 9 UNIT SC (07:43)
[2024-10-02] MEDS: INSULIN LISPRO (AdmeLOG) 1 UNIT/0.01 ML UNIT SC ×3 (07:44→17:25)
[2024-10-02] MEDS: INSULIN GLARGINE (Lantus) 5 UNIT/0.05 ML (PER 5 UNITS) 42 UNIT SC (08:11)
[2024-10-02] MEDS: HEPARIN SOD INJ 5000 UNIT/ML VIAL SC ×2 (08:12→20:59)
[2024-10-02] MEDS: CEFEPIME INJ 1 GM in SODIUM CHLORIDE 0.9% (P) 50 ML IV (08:13)
[2024-10-02] MEDS: SODIUM CHLORIDE 0.9% 1000 ML 1,000 ML 75 ML IV (11:19)
[2024-10-02] MEDS: INSULIN LISPRO (AdmeLOG) 1 UNIT/0.01 ML UNIT 11 UNIT SC ×2 (12:02→17:24)
[2024-10-02] MEDS: cefTRIAXone 2 GM in SODIUM CHLORIDE 0.9% (P) 50 ML IV (14:12)
--- NOTE | 2024-10-02 16:22 | ESPR_ITS ---
Documentation for date of: 10/02/24 Subjective Subjective Interval history: Patient seen at bedside. Overnight spiked a fever of 100.8. Urine culture returned positive for Klebsiella and E. coli, blood culture returned positive for E. coli. Creatinine improving, 1.6 today. Patient was initially on IV cefepime 2 g, will de-escalate to IV ceftriaxone 2 g daily and transition to oral antibiotics tomorrow. Insulin regimen adjusted today to 42 units of subcutaneous Lantus and 11 units 3 times daily with meals. Anticipate discharge tomorrow if patient remains fever free overnight. 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 Eyes open, symmetrical, & clear CARDIO: No chest pain on palpation. Heart RRR, no obvious murmurs PULM: No noted coughing/dyspnea. Lungs CTA B/L GI: Abdomen soft, nondistended, colostomy bag seen with good output. URO/METAL FABRICATION SUPERVISOR:: Suprapubic catheter seen, no signs of infection SKIN/MSK/EXT: No wounds/rashes/edema/amputations, no pain on palpation. Pedal pulses present B/L Objective Labs 10/03/24 04:22 10/03/24 04:22 Labs: Laboratory Results - last 24 hr 10/02/24 04:32 WBC 6.6 RBC 2.98 L Hgb 8.2 L Hct 25.1 L MCV 84 MCH 27.5 MCHC 32.7 RDW Std Deviation 43.5 Plt Count 155 Neut % (Auto) 73 Lymph % (Auto) 16 Pierce % (Auto) 7 Eos % (Auto) 2 Baso % (Auto) 0 Neut # (Auto) 4.8 Lymph # (Auto) 1.1 Pierce # (Auto) 0.5 Eos # (Auto) 0.2 Baso # (Auto) 0.0 Immature Gran # (Auto) 0.04 H Absolute Nucleated RBC 0.00 Immature Gran % 1 H Nucleated RBC % 0 Sodium 136 Potassium 4.6 D Chloride 108 H Carbon Dioxide 22.6 Anion Gap 5 L BUN 21 Creatinine 1.6 H D Estim Creat Clear Calc 39.8 L eGFR 45 L BUN/Creatinine Ratio 13 Glucose 264 H D Calculated Osmolality 283 Calcium 8.6 Corrected Calcium 9.1 Phosphorus 2.6 Magnesium 2.0 Total Bilirubin 0.3 AST 16 ALT 19 Alkaline Phosphatase 111 Total Protein 6.1 Albumin 3.4 Globulin 2.7 Albumin/Globulin Ratio 1.3 Quality Measures Quality Measures VTE prophylaxis Advance care planning discussed with:: patient, spouse and child Assessment & Plan Assessment Current Active Medications: Generic Name Dose Route Start Last Admin Trade Name Freq PRN Reason Stop Dose Admin Acetaminophen 650 mg 09/30/24 17:48 10/02/24 00:25 Acetaminophen 325 Mg Tablet PO 10/30/24 17:47 650 mg Q6H PRN Administration Pain and Fever >101.5 Amlodipine Besylate 5 mg 10/02/24 16:15 Amlodipine Besylate 5 Mg Tablet PO 11/01/24 16:14 QDAY ESTER Dextrose 25 ml 09/30/24 17:58 Dextrose 50%-Water Inj 50 Ml Syringe IV 10/30/24 17:57 Q15MIN PRN BG 50-70 responsive npo pt Dextrose 50 ml 09/30/24 17:58 Dextrose 50%-Water Inj 50 Ml Syringe IV 10/30/24 17:57 Q15MIN PRN BG <50 OR BG <70 & pt unresponsive Glucagon 1 mg 09/30/24 17:58 Glucagon Inj 1 Mg Vial IM Q15MIN PRN BG <70, and no IV access Heparin Sodium (Porcine) 5,000 unit 10/01/24 21:00 10/02/24 08:12 Heparin Sod Inj 5000 Unit/Ml Vial SC 10/15/24 20:59 5,000 unit Q12HR ESTER Administration Hydralazine HCl 10 mg 10/02/24 16:05 Hydralazine Hcl 10 Mg Tablet PO 11/01/24 16:04 Q6HR PRN SBP>160 Sodium Chloride 1,000 mls @ 75 mls/hr 10/02/24 10:22 10/02/24 11:19 Ns IV 10/02/24 23:41 75 mls/hr .[id number] ONE Administration Ceftriaxone Sodium 2 gm/ 50 mls @ 100 mls/hr 10/02/24 14:00 10/02/24 14:12 Sodium Chloride IV 10/09/24 13:59 100 mls/hr QDAY ESTER Administration Insulin Glargine 42 unit 10/02/24 09:00 10/02/24 08:11 Insulin Glargine (Lantus) 5 Unit/0.05 Ml (Per 5 Units) SC 11/01/24 08:59 42 unit QDAY ESTER Administration Insulin Human Lispro 0 unit 10/01/24 07:30 10/02/24 12:02 Insulin Lispro (Admelog) 1 Unit/0.01 Ml Unit SC 10/31/24 07:29 3 unit AC ESTER Administration Protocol Insulin Human Lispro 11 unit 10/02/24 12:00 10/02/24 12:02 Insulin Lispro (Admelog) 1 Unit/0.01 Ml Unit SC 11/01/24 11:59 11 unit TIDWM ESTER Administration Ondansetron HCl 4 mg 09/30/24 17:48 Ondansetron Inj 2 Mg/Ml Inj 2 Ml IV 10/30/24 17:47 Q6H PRN NAUSEA OR VOMITING Protocol Pharmacy Consult 1 each 10/01/24 00:26 Pharmacy To Consult Pneumovacc XX 10/31/24 00:25 PRN PRN CONSULT Plan Summary: The patient is a 73-year-old male with a past medical history of hypertension, diabetes, colon and prostate cancer status post colostomy and radiation with suprapubic catheter who presented to the ED on 09/30/2024 with generalized weakness, confusion and fever that started about 24 hours prior to presentation. Patient is being admitted for management of acute encephalopathy, sepsis secondary to UTI and possible pneumonia. #Acute encephalopathy #Sepsis secondary to UTI #?Community-acquired pneumonia The patient presented with generalized weakness, mild confusion and fever. He is unable to endorse dysuria as the patient has a chronic suprapubic catheter. However he denies abdominal pain, nausea, vomiting, diarrhea, chest pain or cough. Chest x-ray was done which showed suspicion for early diffuse bilateral pneumonia. UA was positive for UTI with 998 WBCs and 1+ bacteria, positive esterase. The patient was given a dose of ceftriaxone and azithromycin in the ED as well as a 1 L bolus of normal saline. 10/02/2024- Overnight spiked a fever of 100.8. Urine culture returned positive for Klebsiella and E. coli, blood culture returned positive for E. coli. Patient was initially on IV cefepime 2 g, will de-escalate to IV ceftriaxone 2 g daily and transition to oral antibiotics tomorrow. Plan: -DC IV cefepime -IV ceftriaxone 2 g daily -CT Maintenance fluids IV NS at 75 cc/h -Continue to monitor CBC #Acute kidney injury likely due to decreased oral intake-improving On admission, labs showed BUN of 24 and creatinine of 1.8. Baseline creatinine looks to be about 1.2, patient has no history of chronic kidney disease. Family at bedside does report the patient has had decreased oral intake in the last couple days. The patient has received 1 L bolus NS in the ED. Cr today-1.6 Plan: -CT Maintenance fluid IV NS at 75 cc/h -Avoid nephrotoxic medications -Monitor CMP #Hyponatremia-resolved Admitting labs showed sodium of 132. Glucose was also 338, possibly pseudohyponatremia from hyperglycemia. Corrected sodium-136 Plan: -Optimize blood glucose control -Monitor CMP #History of diabetes mellitus Patient has a history of type II DM, is on Lantus 50 units at night and short acting 10 units with meals. Admitting blood glucose-338 Plan: -Insulin glargine increased to 42 units daily -Short acting insulin lispro 11 units with meals -ISS -Blood glucose check ACHS -Hypoglycemic protocols in place #History of hypertension The patient is on lisinopril 2.5 mg daily. Blood pressure on admission has been soft. Plan: -Hold antihypertensive for now -Continue to monitor blood pressure Health maintenance: Dispo: MedSurg Diet: Carb consistent low DVT: SC Heparin PT: Completed-recommends home health Code:Full Case was discussed with senior resident Dr Locke PGY-3 and attending physician, Dr Ebony Peterson MD PGY-1 LI discussed with and supervised the engineer internship physician who took care of this patient. I personally saw and examined the patient and discussed the assessment and plan with the entire medicine team, including my attending Dr. Roberto Carlos Beck MD. I agree with the assessment and plan as documented above. Surinder Locke M.D. Internal Medicine PGY-3 Attending Provider Attestation/Addendum Face to face evaluation was performed by me. I have personally seen and examined the patient. I discussed the assessment and plan with the entire medicine team. I reviewed available medical records, imaging studies, laboratory results. I agree with the above subjective data, objective findings, assessment and plan except as corrected by me or noted below Acute encephalopathy suspect infectious and metabolic due to UTI as well as hyperglycemia/ JACQUELINE Type 2 diabetes poorly controlled with hyperglycemia on admission Acute kidney injury present on admission likely dehydration prerenal etiology possible ATN Urine tract infection, present on admission with chronic suprapubic catheter in place, gram-negative bacilli most likely Sepsis present on admission due to UTI as above without septic shock De-escalate antibiotics per culture data and clinical course. Continue to adjust insulins for better diabetes control. Monitor clinical course/vitals/lab results closely
[2024-10-02] MEDS: amLODIPine BESYLATE 5 MG TABLET PO (16:51)
[2024-10-03] VITALS: BP 92/66; PULSE 86; RESP 16; TEMP 36.5; O2SAT 93
[2024-10-03 04:00] VITALS: BP 159/88; PULSE 87; RESP 18; TEMP 36.9; O2SAT 95
[2024-10-03 05:08] LABS: Basophils % (Auto) 0 % (0-2.5); Eosinophils % (Auto) 4 % (0-10); Immature Granulocytes % (Auto) 0 % (0-0); Lymphocytes # (Auto) 1.3 Thou/mm3 (1.0-4.8); Mean Corpuscular Volume 83 fL (80-100); Monocytes # (Auto) 0.6 Thou/mm3 (0.0-0.8); Monocytes % (Auto) 9 % (0-12); Neutrophils # (Auto) 4.2 Thou/mm3 (1.8-7.7); Neutrophils % (Auto) 66 % (37-80); Nucleated Red Blood Cell % 0 /100 WBC (0)
[2024-10-03 05:10] LABS: Eosinophils # (Auto) 0.2 Thou/mm3 (0.0-0.5); Hematocrit 25.8 % (41.0-53.0); Immature Granulocytes Auto 0.02 Thou/mm3 (0.00-0.00); Lymphocytes % (Auto) 20 % (10-50); Mean Corpuscular HGB Conc 32.9 g/dl (31.0-37.0); Mean Corpuscular Hemoglobin 27.3 pg (25.0-35.0); Platelet Count 135 Thou/mm3 (140-440); RDW Standard Deviation 42.4 fL (35.1-43.9); Red Blood Count 3.11 Miln/mm3 (4.50-5.90); White Blood Count 6.3 Thou/mm3 (3.8-10.6)
[2024-10-03 05:11] LABS: Hemoglobin 8.5 g/dL (13.5-16.0)
[2024-10-03 06:00] LABS: Alanine Aminotransferase 24 U/L (10-49); Albumin, Serum 3.5 gm/dL (3.4-4.8); Albumin/Globulin Ratio 1.3 (1.2-2.2); Alkaline Phosphatase 113 U/L (46-116); Anion Gap 7 (7-16); Aspartate Amino Transferase 22 U/L (0-34); BUN/Creatinine Ratio 11 Ratio (12-20); Bilirubin,Total 0.2 mg/dL (0.3-1.2); Blood Urea Nitrogen 13 mg/dL (9-23); Calcium 8.7 mg/dL (8.3-10.6); Calcium (Corrected) 9.1 mg/dL (8.5-10.1); Chloride 108 mMol/L (98-107); Creatinine (Component) 1.2 mg/dL (0.6-1.3); Globulin 2.8 gm/dL (2.3-3.5); Glucose 181 mg/dL (74-106); Magnesium 1.7 mg/dL (1.6-2.6); Osmolality,Calculated 277 (275-295); Phosphorous 2.9 mg/dL (2.4-5.1); Sodium 136 mMol/L (136-145); Total Protein 6.3 gm/dL (5.7-8.2); eGFR > 60 See Note
[2024-10-03 07:40] VITALS: BP 157/77; PULSE 96; RESP 19; TEMP 36.2; O2SAT 94
[2024-10-03] MEDS: INSULIN LISPRO (AdmeLOG) 1 UNIT/0.01 ML UNIT 11 UNIT SC ×2 (07:42→11:38)
[2024-10-03] MEDS: INSULIN LISPRO (AdmeLOG) 1 UNIT/0.01 ML UNIT SC ×2 (07:43→11:39)
[2024-10-03] MEDS: cefTRIAXone 2 GM in SODIUM CHLORIDE 0.9% (P) 50 ML IV (08:59)
[2024-10-03] MEDS: INSULIN GLARGINE (Lantus) 5 UNIT/0.05 ML (PER 5 UNITS) 42 UNIT SC (08:59)
[2024-10-03 09:00] VITALS: BP 157/77; PULSE 96
[2024-10-03] MEDS: HEPARIN SOD INJ 5000 UNIT/ML VIAL SC (09:00)
[2024-10-03] MEDS: amLODIPine BESYLATE 5 MG TABLET PO (09:00)
[2024-10-03 12:00] VITALS: BP 146/88; PULSE 95; RESP 19; TEMP 36.4; O2SAT 95
--- NOTE | 2024-10-03 13:57 | ESDS_ITS ---
Planned Discharge Date 10/03/24 DS: Providers Provider Date of admission: 09/30/24 17:49 Primary care physician: Reynold Suarez MD Admitting Provider: Roberto Carlos Beck MD Attending Provider on Admission: Roberto Carlos Beck MD Consults: 09/30/24 17:58 Referral Registered Dietitian Routine Comment: 10/01/24 10:18 Referral Physical Therapy Routine Comment: Physician Instructions: Attending Provider on DC: Roberto Carlos Beck MD Discharging Provider: Roberto Carlos Beck MD DS: Diagnosis Problem List Completed Was Problem List Reviewed/Reconciled?: Yes Hospital Course Hospital Course Hospital course: The patient is a 73-year-old male with a past medical history of hypertension, diabetes, CVA, colon and prostate cancer status post colostomy and radiation with suprapubic catheter who presented to the ED on 09/30/2024 with generalized weakness, mild confusion and fever that started about 24 hours prior to presentation. In the ED, patient was noted to be afebrile, tachycardic and tachypneic but normotensive. Labs were significant for hyponatremia, increased BUN and creatinine and glucose of 338. UA showed cloudy urine with 998 WBC, 23 RBCs and 1+ bacteria. Chest x-ray was done and was suspicious for early bilateral pneumonia. The patient was given 1 dose of azithromycin and ceftriaxone in the ED and 1 L of NS per sepsis protocol, admitted for management of acute encephalopathy, sepsis secondary urinary tract infection and likely pneumonia. Patient was continued on IV cefepime 2 g every 12, blood and urine cultures were sent. Patient continued to receive maintenance fluids at 75 cc/h was he had decreased oral intake for management of JACQUELINE. Additionally, blood glucose control was optimized and sodium was corrected for hyperglycemia. Cultures returned positive-E. coli bacteremia and Klebsiella plus E. coli in urine. Today, the patient is clinically and hemodynamically stable, medically cleared for discharge. The patient was then started on cephalexin 500 mg 4 times daily to continue for another 4 days. He recommended to follow-up with his primary care provider within 1 week of discharge. #Sepsis secondary to UTI, likely pneumonia #Acute encephalopathy #JACQUELINE #Hyponatremia #History of diabetes #History of hypertension Case was discussed with senior resident Dr Locke PGY-3 and attending physician, Dr Ebony Peterson MD PGY-1 I discussed with and supervised the financial analyst intern physician who took care of this patient. I personally saw and examined the patient and discussed the assessment and plan with the entire medicine team, including my attending Dr. Roberto Carlos Beck MD. I agree with the assessment and plan as documented above. Surinder Locke M.D. 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 Eyes open, symmetrical, & clear CARDIO: No chest pain on palpation. Heart RRR, no obvious murmurs PULM: No noted coughing/dyspnea. Lungs CTA B/L GI: Abdomen soft, nondistended, colostomy bag seen with good output. URO/STEAM OVEN OPERATOR:: Suprapubic catheter seen, no signs of infection SKIN/MSK/EXT: No wounds/rashes/edema/amputations, no pain on palpation. Pedal pulses present B/L Discharge Plan Plan Patient Disposition: Home w/HOME HEALTH Disposition Comment: stable Care Plan Goals: Take cephalexin for 5more days 4 times daily to complete antibiotics course Continue insulin at prescibed dose Follow up with your primary care provider within one week of discharge If you have any re-occurence of symptoms, please return to the ED immediately Prescriptions/Referrals Prescriptions/Med Rec: New cephalexin 500 mg tablet 500 mg PO QID 5 Days Qty: 20 0RF Continued atorvastatin 80 mg tablet 80 mg PO ONCE PM insulin glargine [Lantus Solostar U-100 Insulin] 100 unit/mL (3 mL) insulin pen 50 unit SUBCUT HS Patient Comments: inject 50 units subcutaneously once daily insulin aspart U-100 [Novolog FlexPen U-100 Insulin] 100 unit/mL (3 mL) insulin pen 10 unit SUBCUT TIDWMEAL Patient Comments: inject 10 units subcutaneously three times a day with EACH MEAL lisinopril 10 mg Tablet 10 mg PO QDAY aspirin 81 mg Tablet,Chewable 81 mg PO QDAY (DME) FreeStyle Shelley 14 Day [place] Misc See Rx Instructions .Route Qty: 1 0RF Rx Instructions: As directed (DME) FreeStyle Shelley 14 Day Sensor Kit See Rx Instructions .Route Qty: 1 0RF Rx Instructions: As directed No Action ferrous sulfate [FeroSul] 325 mg (65 mg iron) tablet 325 mg PO DAILY Patient Comments: take 1 tablet by mouth once daily Referrals: Reynold Suarez MD [Primary Care Provider] - Patient/Caregiver Discharge Instructions Discharge Activity: activity as tolerated Education Materials: Sepsis Print Language: Bel[place]an Stand Alone Forms: Qing Award Info., Patient Portal Info Letter Discharge Order Discharge Orders: Discharge (Routine); Ordered 10/03/24 Ordered By: Roberto Carlos (HOSPITALIST) Ebony Quality Discharge Quality Measures VTE prophylaxis Attestestation MD Attestation Face to face evaluation was performed by me. I have personally seen and examined the patient. I discussed the assessment and plan with the entire medicine team. I reviewed available medical records, imaging studies, laboratory results. I agree with the above subjective data, objective findings, assessment and plan except as corrected by me or noted below Acute encephalopathy suspect infectious and metabolic due to UTI as well as hyperglycemia/ JACQUELINE Type 2 diabetes poorly controlled with hyperglycemia on admission Acute kidney injury present on admission likely dehydration prerenal etiology possible ATN Urine tract infection, present on admission with chronic suprapubic catheter in place, gram-negative bacilli most likely Sepsis present on admission due to UTI as above without septic shock Sepsis resolved, cultures showing E. coli in urine, switch to oral Keflex and discharged on 500 mg 4 times a day for another 5 days to complete 7-day course. Diabetes better controlled here discharge on home regimen 50 units of long- acting as well as 10 units of short acting 3 times daily with meals. Compliance is very important discussed with family including as well as daughter at bedside. Patient has been getting less than 80 units total here and diabetes is better controlled,
--- NOTE | 2024-10-03 14:31 | PC.SS ---
SS spoke with transfer nurse to update telephone contact and HH preference SS used translation services discussed HH; no preference; confirmed address and correct telephone number for Rachell, spouse, SS met with pt bedside; translation offered by nurse Jennifer; pt alert and oriented x4 went over medicare
--- NOTE | 2024-10-03 15:42 | PC.SS ---
Late Entry: SS spoke with Elvia, registration, updated telephone number for Rachell, spouse,
--- NOTE | 2024-10-04 10:07 | PC.CM ---
Addendum entered by Rui Rick RN 10/04/24 14:56: [facility] accepted the pt. Booked them. Start of care date is 10/05/24. Original Note: No preference of HH agency per SS notes. HH referral sent on [facility]. Awaiting responses. Pending Start of care date.
== END 2024-10-03 13:27 | disposition home health service (06) | DRG 871 ==
LOC: SERX 14:28 → SERHOLD 18:15 → S3SX 23:31
PROVIDERS: Nurse Practitioner Family; Admitting Provider Internal Medicine; Emergency Provider Emergency Medicine; PCP Physician Assistant; Visit Provider Internal Medicine
DX: A41.9 Sepsis, unspecified organism (principal); G93.41 Metabolic encephalopathy; J18.9 Pneumonia, unspecified organism; I69.351 Hemiplegia and hemiparesis following cerebral infarction affecting right dominant side; N39.0 Urinary tract infection, site not specified; N17.9 Acute kidney failure, unspecified; E87.1 Hypo-osmolality and hyponatremia; I10 Essential (primary) hypertension; E78.00 Pure hypercholesterolemia, unspecified; B96.1 Klebsiella pneumoniae [K. pneumoniae] as the cause of diseases classified elsewhere; B96.20 Unspecified Escherichia coli [E. coli] as the cause of diseases classified elsewhere; E86.0 Dehydration; E11.65 Type 2 diabetes mellitus with hyperglycemia; I69.322 Dysarthria following cerebral infarction; Z93.3 Colostomy status; Z85.46 Personal history of malignant neoplasm of prostate; Z87.440 Personal history of urinary (tract) infections; Z85.038 Personal history of other malignant neoplasm of large intestine; Z93.59 Other cystostomy status; Z79.4 Long term (current) use of insulin; Z79.899 Other long term (current) drug therapy
CPT/HCPCS: 36415; 71045; 80053; 80061; 81001; 82436; 83036; 83605; 83690; 83735; 84100; 84133; 84145; 84300; 84443; 85025; 85610; 85730; 87040; 87077; 87086; 87186; 93005; 96372; 97162; 99285; J0456; J0692; J0696; J1643; J1650; J1815; J3475; J7030; J7050; A9270; J1644

== ENCOUNTER 2025-01-09 14:36 | Emergency (ER) | payer MEDICARE, MEDICAID, SELFPAY ==
[2025-01-09 14:39] VITALS: BMI 24.3
[2025-01-09 14:54] VITALS: BP 163/98; PULSE 92; RESP 18; TEMP 36.6; O2SAT 95
--- NOTE | 2025-01-09 15:04 | XR_ITS ---
Examination: Right elbow 3 views Technique: Elbow AP, oblique, lateral 3 views Exam date and time: January 09, 2025 1532 hrs. Indications: Patient fell 8 days ago with injury to the elbow, elbow pain. Findings: Acute supracondylar fracture distal humerus No significant displacement Impression: Acute supracondylar fracture distal humerus
--- NOTE | 2025-01-09 15:07 | XR_ITS ---
Examination: Knee, right , 3 views Technique: Knee AP, lateral, oblique 3 views Date and time of exam: January 09, 2025 1532 hrs. Indications: Patient fell 8 days ago with injury to the knee, knee pain. Findings: Advanced tricompartment osteoarthritis, severe narrowing medial patellofemoral joints Small knee effusion No acute fracture Impression: No acute fracture Given the severe osteopenia, recommend short-term follow-up knee films as clinically warranted
--- NOTE | 2025-01-09 15:07 | PD.EDUPEX ---
Upper Extremity Injury RME/HPI General Chief Complaint: Extremity Injury, Upper Stated Complaint: RIGHT ELBOW AND KNEE PAIN AFTER FALL 8 DAYS AGO Time Seen by Provider: 01/09/25 14:46 Source: patient Arrival date/time: 01/09/25 14:36 74-year-old male with a history of hyperlipidemia, type 2 diabetes, hypertension presents to the emergency room with a chief complaint of right elbow tenderness and pain, right knee pain after a fall that occurred 8 days ago. Mode of arrival: ambulatory Limitations: no limitations Related Data Home Medications ?Medication ?Instructions ?Recorded ?Confirmed aspirin 81 mg chewable tablet 81 mg PO QDAY 10/01/24 10/01/24 atorvastatin 80 mg tablet 80 mg PO ONCE PM 10/01/24 10/01/24 ferrous sulfate 325 mg (65 mg 325 mg PO DAILY 10/01/24 10/01/24 iron) tablet (FeroSul) insulin aspart U-100 100 unit/mL 10 unit subcut TIDWMEAL 10/01/24 10/01/24 (3 mL) subcutaneous pen (Novolog FlexPen U-100 Insulin aspart) insulin glargine 100 unit/mL (3 50 unit subcut HS 10/01/24 10/01/24 mL) subcutaneous pen (Lantus Solostar U-100 Insulin) lisinopril 10 mg tablet 10 mg PO QDAY 10/01/24 10/01/24 Previous Rx's ?Medication ?Instructions ?Recorded flash glucose scanning reader #1 ea 03/31/24 (FreeStyle Shelley 14 Day [place]) flash glucose sensor (FreeStyle #1 ea 03/31/24 Shelley 14 Day Sensor kit) hydrocodone 5 mg-acetaminophen 325 1 tab PO BID PRN pain #10 tabs 01/09/25 mg tablet Allergies Allergy/AdvReac Type Severity Reaction Status Date / Time No Known Allergies Allergy Verified 01/09/25 14:39 Review of Systems Review of Systems Systems Reviewed: All systems reviewed, normal except as documented Constitutional Constitutional: Reports system reviewed and no additional complaints, except as documented, Denies fatigue, Denies fever(s), Denies headache(s) and Denies weakness Eyes Eyes: Reports system reviewed and no additional complaints, except as documented, Denies blurry vision and Denies change in vision ENT Ears, Nose, Mouth, and Throat: Reports system reviewed and no additional complaints, except as documented, Denies otalgia, Denies headache(s), Denies nasal congestion, Denies throat swelling and Denies vertigo Cardiovascular Cardiovascular: Reports system reviewed and no additional complaints, except as documented, Denies chest pain, Denies dyspnea and Denies dyspnea on exertion Respiratory Respiratory: Reports system reviewed and no additional complaints, except as documented, Denies chest congestion, Denies cough, Denies dyspnea, Denies dyspnea on exertion and Denies wheezing Gastrointestinal Gastrointestinal: Reports system reviewed and no additional complaints, except as documented, Denies abdominal pain, Denies cramping, Denies nausea and Denies vomiting Genitourinary Genitourinary: Reports system reviewed and no additional complaints, except as documented, Denies dysuria and Denies hematuria Musculoskeletal Musculoskeletal: Reports system reviewed and no additional complaints, except as documented, Reports arthralgias, Denies back pain, Reports joint swelling and Reports limited range of motion Integumentary/Breasts Skin/Breast: Reports system reviewed and no additional complaints, except as documented and Denies wounds Neurologic Neurologic: Reports system reviewed and no additional complaints, except as documented, Denies confusion, Denies headache(s), Denies lack of coordination, Denies vertigo and Denies weakness Psychiatric Psychiatric: Reports system reviewed and no additional complaints, except as documented, Denies anxiety, Denies confusion, Denies depression, Denies paranoia, Denies suicidal ideation and Denies tactile hallucinations Endocrine Endocrine: Reports system reviewed and no additional complaints, except as documented and Denies fatigue Hematologic/Lymphatic Hematologic/Lymphatic: Reports system reviewed and no additional complaints, except as documented and Denies lymphadenopathy Allergic/Immunologic Allergic/Immunologic: Reports system reviewed and no additional complaints, except as documented, Denies throat swelling, Denies urticaria and Denies wheezing ED Exam General Limitations: Present no limitations General appearance: Present alert and in no apparent distress Head Head exam: Present atraumatic Eye Eye exam: Present normal appearance, PERRL and EOMI ENT ENT exam: Present normal exam, normal oropharynx and mucous membranes moist Neck Neck exam: Present normal inspection, full ROM and trachea midline Chest Chest inspection: Present normal inspection and symmetric chest wall rise Respiratory Respiratory exam: Present normal lung sounds bilaterally Cardiovascular Cardiovascular exam: Present regular rate, normal rhythm and normal heart sounds Abdominal Exam Abdominal exam: Present soft and normal bowel sounds Extremities Exam Extremities exam: Present normal inspection and full ROM Expanded Upper Extremity Exam Shoulder exam: Present normal inspection Arm exam: Present normal inspection Elbow exam: Present tenderness and swelling; Absent full ROM Expanded Lower Extremity Exam Hip/Pelvis exam: Present normal inspection Upper leg exam: Present normal inspection Knee exam: Present tenderness Back Exam Back exam: Present normal inspection and full ROM Neurological Exam Neurological exam: Present alert, oriented X3 and CN II-XII intact Psychiatric Psychiatric exam: Present normal affect and normal mood Skin Skin exam: Present warm, dry, intact and normal color Course Quality Measures none Orders Category Date Time Status Splint / Immobilizer STAT Care 01/09/25 17:45 Completed XR elbow comp RT min 3V Stat Exams 01/09/25 15:04 Completed XR knee RT 3V Stat Exams 01/09/25 15:07 Completed Vital Signs Vital signs: Vital Signs Temperature 97.8 F 01/09/25 14:54 Pulse Rate 92 01/09/25 14:54 Respiratory Rate 18 01/09/25 14:54 Blood Pressure 163/98 H 01/09/25 14:54 Pulse Oximetry (%) 95 01/09/25 14:54 Oxygen Delivery Method Room Air 01/09/25 14:54 O2 saturation 95% within normal limits Extremity Injury MDM Narrative MDM Narrative:: 74-year-old male with a history of hyperlipidemia, type 2 diabetes, hypertension presents to the emergency room with a chief complaint of right elbow tenderness and pain, right knee pain after a fall that occurred 8 days ago. The patient is hemodynamically stable and in no apparent distress Physical examination shows 8 out of 10 right elbow tenderness, swelling. The patient states this injury has been going on for the last 8 days since his fall. The patient is also complaining of 5 out of 10 right knee tenderness. There is some swelling to the area. The patient has active range of motion to the knee. The patient denies any head injury or neck injury. The patient is a GCS of 15 he is alert and oriented x 3. Pupils are PERRLA EOMs are intact. X-ray of the right elbow shows a acute supracondylar fracture of the distal humerus. A splint was placed, a sling was given. X-ray of the right knee was completed and shows no acute fracture however there is advanced tricompartment osteoarthritis in the radiologist recommends short-term follow-up knee films as clinically warranted. the patient was given pain medications and educated to follow-up with his primary care provider and return to the emergency room for any evidence of worsening signs or symptoms. Patient data External records reviewed:: [facility] previous records Clinical information provided by:: patient Social determinants that could affect healthcare access:: none Patient has the following chronic illnesses:: Hyperlipidemia, hypertension, type 2 diabetes How is presenting disease/condition affected by chronic disease/condition?: uneffected by Evaluation data The following diagnostics were reviewed and interpreted by me:: lab results and radiology exam(s) Lab and/or radiology exams considered but not ordered:: Labs and radiology exams considered and ordered Interpretation Summary: Right elbow [id number]: Acute supracondylar fracture distal humerus No significant displacement Impression: Acute supracondylar fracture distal humerus right knee [id number]: Advanced tricompartment osteoarthritis, severe narrowing medial patellofemoral joints Small knee effusion No acute fracture Impression: No acute fracture Given the severe osteopenia, recommend short-term follow-up knee films as clinically warranted Medications / Prescriptions Medications or Prescriptions considered but not ordered:: No medication given Medication administrations:: No medication given Consultations Consultation(s) initiated? (list below): No Diagnosis Upper Extremity Injury Differential Diagnosis: fracture of humerus and other (Right knee fracture/right knee dislocation/right knee sprain/right elbow sprain) Most likely diagnosis given after review of the tests above:: Right fracture distal humerus Admission Indicated Admission indicated?: not indicated Admission Request Was there a request for admission?: No Disposition Plan Disposition Plan: Discharge Discharge Attestation Discharge Attestation: The patient and all family members were given an opportunity to ask questions and understood the discharge instructions. Discharge instructions specifically effects, indications for sooner follow up or return to the emergency department, and the expected course of current diagnosis. Patient condition: Stable Discharge Plan Plan Patient Disposition: HOME (Self Care) Disposition Comment: Stable Prescriptions/Referrals Prescriptions/Med Rec: New hydrocodone-acetaminophen 5-325 mg tablet 1 tab PO BID MDD 10mg PRN (Reason: pain) Qty: 10 0RF No Action atorvastatin 80 mg tablet 80 mg PO ONCE PM insulin glargine [Lantus Solostar U-100 Insulin] 100 unit/mL (3 mL) insulin pen 50 unit SUBCUT HS Patient Comments: inject 50 units subcutaneously once daily insulin aspart U-100 [Novolog FlexPen U-100 Insulin] 100 unit/mL (3 mL) insulin pen 10 unit SUBCUT TIDWMEAL Patient Comments: inject 10 units subcutaneously three times a day with EACH MEAL lisinopril 10 mg Tablet 10 mg PO QDAY ferrous sulfate [FeroSul] 325 mg (65 mg iron) tablet 325 mg PO DAILY Patient Comments: take 1 tablet by mouth once daily aspirin 81 mg Tablet,Chewable 81 mg PO QDAY (DME) FreeStyle Shelley 14 Day [place] Misc See Rx Instructions .Route Qty: 1 0RF Rx Instructions: As directed (DME) FreeStyle Shelley 14 Day Sensor Kit See Rx Instructions .Route Qty: 1 0RF Rx Instructions: As directed Problem List Clinical Impression: Fracture of distal end of humerus Patient/Caregiver Discharge Instructions Education Materials: ED Elbow Fracture, ED Fracture, Upper Extremity Additional Instructions: Please follow-up with your primary care provider in the next 24 to 48 hours. You have a fracture to your elbow. A splint was put in place please keep the splint on until you are seen and cleared by your education program specialist Your primary care provider will give you a referral to the education program specialist. For any evidence of worsening signs or symptoms return the emergency room immediately Print Language: Turkmen Stand Alone Forms: Qing Award Info., Patient Portal Info Letter PA/CHIEF ENGINEER Supervising Physician PA/AYDEN Supervising Physician: Dr Pickett
== END 2025-01-10 00:12 | disposition home or self-care (01) ==
LOC: SERX 01-10 00:16
PROVIDERS: Emergency Provider Emergency Medicine
DX: S42.411A Displaced simple supracondylar fracture without intercondylar fracture of right humerus, initial encounter for closed fracture (principal); W19.XXXA Unspecified fall, initial encounter; M25.561 Pain in right knee; I10 Essential (primary) hypertension; E11.9 Type 2 diabetes mellitus without complications; E78.5 Hyperlipidemia, unspecified
CPT/HCPCS: 29105; 73080; 73562; 99283